=== PATIENT | male | born 1975 | race Caucasian/White ===

== ENCOUNTER 2017-05-07 17:58 | Emergency (ER) | payer OTHER ==
[2017-05-07] MEDS ORDERED: Sodium Chloride 0.9% 1,000 ML IV ONE ×2 (18:31→19:50)
--- NOTE | 2017-05-07 18:46 | EDM.PDOC ---
ED HPI GENERAL MEDICAL PROBLEM - General Chief Complaint: Diabetic Complaint Stated Complaint: DIZZY BLURR VISION Time Seen by Provider: 05/07/17 18:15 Source of Information: Reports: Patient History Limitations: Reports: No Limitations - History of Present Illness INITIAL COMMENTS - FREE TEXT/NARRATIVE: History of present illness: [41-year-old male presents with concerns of hyperglycemia. Patient is a known diabetic and has not had his insulin in excess of a week and a half due to having left it in [place] and is out here working. He had intended to go back and get it but has been able unable to break free, also has been unable to have it shipped to him due to the fragility of injected insulin.] Review of systems: As per history of present illness and below otherwise all systems reviewed and negative. Past medical history: As per history of present illness and as reviewed below otherwise noncontributory. Surgical history: As per history of present illness and as reviewed below otherwise noncontributory. Social history: No reported history of drug or alcohol abuse. Family history: As per history of present illness and as reviewed below otherwise noncontributory. Physical exam: HEENT: Atraumatic, normocephalic, pupils reactive, negative for conjunctival pallor or scleral icterus, mucous membranes moist, throat clear, neck supple, nontender, trachea midline. Lungs: Clear to auscultation, breath sounds equal bilaterally, chest nontender. Heart: S1S2, regular, negative for clicks, rubs, or JVD. Abdomen: Soft, nondistended, nontender. Negative for masses or hepatosplenomegaly. Negative for costovertebral tenderness. Pelvis: Stable nontender. Genitourinary: Deferred. Rectal: Deferred. Extremities: Atraumatic, negative for cords or calf pain. Neurovascular unremarkable. Neuro: Awake, alert, oriented. Cranial nerves II through XII unremarkable. Cerebellum unremarkable. Motor and sensory unremarkable throughout. Exam nonfocal. Global assessment is benign save the subjective complaint as noted above. Insulin provide patient with good results patient requested a refill since he was unable to access his supplies in [place] Diagnostics: [CBC, CMP, lipase, amylase] Therapeutics: [1 L of normal saline] Impression: [Hyperglycemia ] Plan: [Prescription given follow-up with PCP [facility]] Definitive disposition and diagnosis as appropriate pending reevaluation and review of above. Posterior Head Pain Score (Numeric/FACES): 8 - Related Data Allergies Allergy/AdvReac Type Severity Reaction Status Date / Time No Known Allergies Allergy Verified 05/07/17 18:12 Home Meds: Home Meds Insulin Glarg,Human.Rec.Analog [Lantus] 80 units SQ DAILY 10/22/14 [History] Insulin Regular, Human [Novolin R] 100 unit IJ QIDACANDBED #10 ml 05/07/17 [Rx] Past Medical History Endocrine/Metabolic History: Reports: Diabetes, Type II - Infectious Disease History Infectious Disease History: Reports: Chicken Pox - Past Surgical History GI Surgical History: Reports: Hernia Repair/Other Social & Family History - Family History Family Medical History: Noncontributory - Tobacco Use Smoking Status *Q: Former Smoker Used Tobacco, but Quit: Yes Month Tobacco Last Used: 18 years Second Hand Smoke Exposure: No - Alcohol Use Days Per Week of Alcohol Use: 0 - Recreational Drug Use Recreational Drug Use: No ED ROS GENERAL - Review of Systems Review Of Systems: See Below (See history of present illness) ED EXAM GENERAL NO PERIP PULSE - Physical Exam Exam: See Below (See history of present illness) Course - Vital Signs Last Recorded V/S: Last Vital Signs Temp 36.3 C 05/07/17 18:01 Pulse 88 05/07/17 18:01 Resp 18 05/07/17 18:01 BP 153/102 H 05/07/17 18:01 Pulse Ox 100 05/07/17 18:01 - Orders/Labs/Meds Labs: Laboratory Tests 05/07/17 05/07/17 05/07/17 Range/Units 18:08 18:35 18:35 WBC 6.93 (4.0-11.0) K/uL RBC 5.62 (4.50-5.90) M/uL Hgb 15.9 (13.0-17.0) g/dL Hct 45.4 (38.0-50.0) % MCV 80.8 (80.0-98.0) fL MCH 28.3 (27.0-32.0) pg MCHC 35.0 (31.0-37.0) g/dL RDW Std Deviation 37.2 (28.0-62.0) fl RDW Coeff of Zoila 13 (11.0-15.0) % Plt Count 206 (150-400) K/uL MPV 12.40 H (7.40-12.00) fL Neut % (Auto) 49.5 (48.0-80.0) % Lymph % (Auto) 39.4 (16.0-40.0) % Dane % (Auto) 7.6 (0.0-15.0) % Eos % (Auto) 2.9 (0.0-7.0) % Baso % (Auto) 0.6 (0.0-1.5) % Neut # (Auto) 3.4 (1.4-5.7) K/uL Lymph # (Auto) 2.7 H (0.6-2.4) K/uL Dane # (Auto) 0.5 (0.0-0.8) K/uL Eos # (Auto) 0.2 (0.0-0.7) K/uL Baso # (Auto) 0.0 (0.0-0.1) K/uL Nucleated RBC % 0.0 /100WBC Nucleated RBCs # 0 K/uL Sodium 132 L (136-146) mmol/L Potassium 4.0 (3.5-5.1) mmol/L Chloride 99 (98-110) mmol/L Carbon Dioxide 22 (21-31) mmol/L BUN 13 (6.0-23.0) mg/dL Creatinine 1.2 (0.6-1.5) mg/dL Est Cr Clr Drug Dosing 82.80 mL/min Estimated GFR (MDRD) > 60.0 ml/min Glucose 498 H (60-110) mg/dL POC Glucose 347 H (60-110) mg/dL Calcium 9.2 (8.8-10.8) mg/dL Total Bilirubin 0.8 (0.1-1.5) mg/dL AST 16 (5-40) IU/L ALT 23 (8-54) IU/L Alkaline Phosphatase 111 (40-150) Total Protein 8.1 H (6.0-8.0) g/dL Albumin 4.1 (3.5-5.0) g/dL Globulin 4.0 H (2.0-3.5) g/dL Albumin/Globulin Ratio 1.0 L (1.3-2.8) Amylase 77 (10-90) U/L Lipase 205 H (7-80) U/L 05/07/17 Range/Units 20:12 WBC (4.0-11.0) K/uL RBC (4.50-5.90) M/uL Hgb (13.0-17.0) g/dL Hct (38.0-50.0) % MCV (80.0-98.0) fL MCH (27.0-32.0) pg MCHC (31.0-37.0) g/dL RDW Std Deviation (28.0-62.0) fl RDW Coeff of Zoila (11.0-15.0) % Plt Count (150-400) K/uL MPV (7.40-12.00) fL Neut % (Auto) (48.0-80.0) % Lymph % (Auto) (16.0-40.0) % Dane % (Auto) (0.0-15.0) % Eos % (Auto) (0.0-7.0) % Baso % (Auto) (0.0-1.5) % Neut # (Auto) (1.4-5.7) K/uL Lymph # (Auto) (0.6-2.4) K/uL Dane # (Auto) (0.0-0.8) K/uL Eos # (Auto) (0.0-0.7) K/uL Baso # (Auto) (0.0-0.1) K/uL Nucleated RBC % /100WBC Nucleated RBCs # K/uL Sodium (136-146) mmol/L Potassium (3.5-5.1) mmol/L Chloride (98-110) mmol/L Carbon Dioxide (21-31) mmol/L BUN (6.0-23.0) mg/dL Creatinine (0.6-1.5) mg/dL Est Cr Clr Drug Dosing mL/min Estimated GFR (MDRD) ml/min Glucose (60-110) mg/dL POC Glucose 183 H (60-110) mg/dL Calcium (8.8-10.8) mg/dL Total Bilirubin (0.1-1.5) mg/dL AST (5-40) IU/L ALT (8-54) IU/L Alkaline Phosphatase (40-150) Total Protein (6.0-8.0) g/dL Albumin (3.5-5.0) g/dL Globulin (2.0-3.5) g/dL Albumin/Globulin Ratio (1.3-2.8) Amylase (10-90) U/L Lipase (7-80) U/L Meds: Medications Discontinued Medications Generic Name Dose Route Start Last Admin Trade Name Diego PRN Reason Stop Dose Admin Sodium Chloride 1,000 mls @ 999 mls/hr 05/07/17 18:31 05/07/17 18:41 Normal Saline IV 05/07/17 19:31 999 mls/hr STAT ONE Administration Sodium Chloride 1,000 mls @ 999 mls/hr 05/07/17 19:50 05/07/17 20:14 Normal Saline IV 05/07/17 20:50 999 mls/hr STAT ONE Administration Insulin Human Regular 15 unit 05/07/17 19:15 05/07/17 19:22 Novolin R IVPUSH 05/07/17 19:16 15 units ONETIME ONE Administration Departure - Departure Time of Disposition: 21:10 Disposition: Home, Self-Care 01 Condition: Good Clinical Impression: Hyperglycemia - Discharge Information Prescriptions: Insulin Regular, Human [Novolin R] 100 unit IJ QIDACANDBED #10 ml Instructions: Type 2 Diabetes Mellitus, Adult, [id number] Forms: ED Department Discharge Additional Instructions: The following information is given to patients seen in the emergency department who are being discharged to home. This information is to outline your options for follow-up care. We provide all patients seen in our emergency department with a follow-up referral. The need for follow-up, as well as the timing and circumstances, are variable depending upon the specifics of your emergency department visit. If you don't have a primary care physician on staff, we will provide you with a referral. We always advise you to contact your personal physician following an emergency department visit to inform them of the circumstance of the visit and for follow-up with them and/or the need for any referrals to a consulting specialist. The emergency department will also refer you to a specialist when appropriate. This referral assures that you have the opportunity for follow-up care with a specialist. All of these measure are taken in an effort to provide you with optimal care, which includes your follow-up. Under all circumstances we always encourage you to contact your private physician who remains a resource for coordinating your care. When calling for follow-up care, please make the office aware that this follow-up is from your recent emergency room visit. If for any reason you are refused follow-up, please contact the [facility] Emergency Department at and asked to speak to the emergency department charge nurse. Take your insulin as discussed Follow-up with the PCP [facility] Returned ER as needed as discussed [facility] [address] [place] [id number]
[2017-05-07 19:09] LABS: CHLORIDE,CL 99 mmol/L (98-110); SODIUM,NA 132 mmol/L (136-146)
[2017-05-07] MEDS ORDERED: Insulin Regular, Human 100 Units/ML 10 ML Vial IVPUSH ONE (19:15)
[2017-05-07 21:45] VITALS: BP 160/111
== END 2017-05-07 21:45 | disposition home or self-care (01) ==
LOC: MW.ED 17:58
DX: E11.65 Type 2 diabetes mellitus with hyperglycemia (principal); Z79.4 Long term (current) use of insulin; Z87.891 Personal history of nicotine dependence
CPT/HCPCS: 36415; 80053; 82150; 82962; 83690; 85025; 96361; 96374; 99283; J7040; J1815-GY